=== PATIENT | male | born 1995 | race Caucasian/White ===

== ENCOUNTER 2016-11-25 02:12 | Inpatient (IN) | payer OTHER ==
[2016-11-25] VITALS (20 sets, daily range): BP systolic 104–153; BP diastolic 49–92
[~2016-11-25] VITALS: Ht 185.4 cm; Wt 108.9 kg
[2016-11-25] MEDS ORDERED: Naloxone 1mg/ml 2ml ONE ×3 (04:24→04:38)
--- NOTE | 2016-11-25 04:41 | Emergency Room Report ---
History of Present Illness General Chief Complaint: Overdose Source: Patient, EMS Present Illness HPI 21YOM BIBEMS with heroin OD. Per EMS, required 2mg IV and IM heroin as was not responsive, not breathing CPR was started Finally responded after 2nd dose narcan Patient states he did 1/2 gram. Relapsed after 1 year of not using Denies ETOH, other drugs Allergies: Coded Allergies: No Known Allergies (Unverified , 11/25/16) Patient History Past Medical History: none Past Surgical History: none Pertinent Family History: none Social History: Denies: alcohol use, drug use, smoking Immunizations: UTD Reviewed Nursing Documentation: PMH: Agreed, PSxH: Agreed Nursing Documentation-PMH Past Medical History: No Stated History Review of Systems All Other Systems: negative except mentioned in HPI Physical Exam Vital Signs Date Time Temp Pulse Resp B/P Pulse Ox O2 Delivery O2 Flow Rate FiO2 11/25/16 02:08 100.2 96 22 121/102 100 Room Air Sp02 EP Interpretation: reviewed, normal General Appearance: normal inspection, well appearing, no apparent distress, alert, GCS 15, non-toxic Head: normocephalic, atraumatic Eyes: bilateral eye EOMI, bilateral eye PERRL ENT: normal ENT inspection, hearing grossly normal, normal voice Neck: normal inspection, full range of motion, supple, no bony tend Respiratory: normal inspection, lungs clear, normal breath sounds, no respiratory distress, no retraction, no wheezing Cardiovascular #1: regular rate, rhythm, no edema Gastrointestinal: normal inspection, normal bowel sounds, non tender, soft, no guarding, no hernia Genitourinary: no CVA tenderness Musculoskeletal: normal inspection, back normal, normal range of motion, Alicja' s Sign negative Neurologic: normal inspection, alert, oriented x3, responsive, holder pile driving III-XII nml as tested, motor strength/tone normal, speech normal Psychiatric: normal inspection, judgement/insight normal, mood/affect normal Skin: normal inspection, normal color, no rash Medical Decision Making Diagnostic Impression: Primary Impression: Heroin overdose Qualified Codes: T40.1X1A - Poisoning by heroin, accidental (unintentional), initial encounter Additional Impressions: Respiratory arrest Rhabdomyolysis Qualified Codes: M62.82 - Rhabdomyolysis JOSE ALFREDO (acute kidney injury) Leukocytosis Qualified Codes: D72.829 - Elevated white blood cell count, unspecified Hypokalemia ER Course Initial heroin overdose responsive to narcan Patient was observed in the ED with stable vitals until 430am, patient became unresponsive Was pale, shallow RR, pinpoint pupils Additional narcan 1mg X2 was given followed by narcan gtt Labs: Rhabdo, JOSE ALFREDO. Leukocytosis likely reactionary vs chemical pneumonitis from vomiting/aspiration CXR: No PNA, CHF Endorsed for ICU to Dr Salinas at 530am EKG Diagnostic Results Rate: normal Rhythm: NSR ST Segments: no acute changes ASA given to the pt in ED: No Rhythm Strip Diag. Results EP Interpretation: yes Rate: 74 Rhythm: NSR, no PVC's, no ectopy Chest X-Ray Diagnostic Results Chest X-Ray Diagnostic Results : Chest X-Ray Ordered: Yes # of Views/Limited/Complete: 1 View Indication: Chest Pain EP Interpretation: Yes Interpretation: no consolidation, no effusion, no pneumothorax, no acute cardiopulmonary disease Impression: No acute disease Interpreting ER Provider: Electronically signed by DR Glass Last Vital Signs Date Time Temp Pulse Resp B/P Pulse Ox O2 Delivery O2 Flow Rate FiO2 11/25/16 03:22 100.2 86 22 132/78 100 Room Air Status: improved Disposition: ADMITTED INPATIENT Condition: Critical Referrals: NOT CHOSEN IPA/,REFERRING (PCP) NOREEN GLASS M.D. Nov 25, 2016 04:40
[2016-11-25] MEDS ORDERED: Naloxone 2 MG in D5W 500ml 498 ML IV SCH (04:45)
[2016-11-25] MEDS ORDERED: Naloxone 1mg/ml 2ml IVP ONE ×2 (04:45)
[2016-11-25 04:57] LABS: MEAN CORPUSCULAR HEMOGLOBIN 33.1 PG (27.0-31.0); MEAN CORPUSCULAR HGB CONC 34.1 G/DL (32.0-36.0); MEAN CORPUSCULAR VOLUME 97 FL (80-99); MEAN PLATELET VOLUME 6.9 FL (6.5-10.1); PLATELET COUNT 187 K/UL (150-450); RED BLOOD COUNT 4.47 M/UL (4.70-6.10); RED CELL DISTRIBUTION WIDTH 11.4 % (11.6-14.8)
[2016-11-25 05:14] LABS: TROPONIN I < 0.30 ng/mL (<=0.30)
[2016-11-25 05:15] LABS: ALANINE AMINOTRANSFERASE 29 U/L (3-41); ALBUMIN/GLOBULIN RATIO 2.1 (1.0-2.7); ANION GAP 14 (5-15); ASPARTATE AMINO TRANSFERASE 34 U/L (5-40); CALCIUM 9.5 mg/dL (8.6-10.2); CARBON DIOXIDE 26 mEQ/L (20-30); CHLORIDE 101 mEQ/L (98-107); CREATININE 1.3 mg/dL (0.7-1.2); GLOMERULAR FILTRATION RATE > 60 mL/min (>60); HEMOLYSIS 7; POTASSIUM 3.2 mEQ/L (3.4-4.9); SODIUM 141 mEQ/L (135-145); TOTAL PROTEIN 7.5 g/dL (6.6-8.7)
[2016-11-25 05:26] LABS: CKMB 9.3 ng/mL (< 6.7)
[2016-11-25 06:08] LABS: BAND NEUTROPHILS % (MANUAL) 14 % (0-8); LYMPHOCYTES % (MANUAL) 6 % (20-45); NEUTROPHILS % (MANUAL) 74 % (45-75); TOTAL CELLS COUNTED 100
[2016-11-25 06:09] LABS: BASOPHILS % (MANUAL) 0 % (0-2); EOSINOPHILS % (MANUAL) 0 % (0-3); PLATELET ESTIMATE ADEQUATE; PLATELET MORPHOLOGY NORMAL
[2016-11-25] MEDS ORDERED: DuoNeb 0.5-3(2.5)mg/3ml neb HHN PRN ×2 (08:00→20:00)
[2016-11-25] MEDS ORDERED: Nitroglycerin Subl 0.4mg tab (Bottle Of 25) SL PRN ×2 (08:00→19:30)
[2016-11-25] MEDS ORDERED: LORazepam Inj 2mg/ml 1ml IV PRN ×2 (08:00→20:00)
[2016-11-25] MEDS ORDERED: D5 1/2NS 1,000 ML IV SCH (09:00)
[2016-11-25] MEDS ORDERED: Heparin 5000 units/ml inj SUBQ SCH (09:00)
--- NOTE | 2016-11-25 09:02 | History and Physical ---
History of Present Illness General Date patient seen: Nov 25, 2016 Reason for Hospitalization: Overdose Present Illness HPI 21 year old male brought in by paramedics with heroin OD. Per EMS, required 2mg IV Narcan not breathing, CPR was started. He responded after 2nd dose Narcan. He was started on Narcan drip in ER and transferred to ICU. Allergies: Coded Allergies: No Known Allergies (Unverified , 11/25/16) Patient History Healthcare decision maker Resuscitation status Full Code Advanced Directive on File Past Medical/Surgical History Past Medical/Surgical History: (1) Heroin addiction Review of Systems All Other Systems: negative except mentioned in HPI Physical Exam General Appearance: WD/WN, no apparent distress Lines, tubes and drains: peripheral HEENT: normocephalic, atraumatic Neck: non-tender, normal alignment Respiratory/Chest: chest wall non-tender, lungs clear Breasts: no masses Cardiovascular/Chest: normal peripheral pulses Abdomen: normal bowel sounds, non tender Genitourinary/Rectal: normal genital exam, normal prostate exam Extremities: normal range of motion 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 Last 24 Hour Vital Signs Date Time Temp Pulse Resp B/P Pulse Ox O2 Delivery O2 Flow Rate FiO2 11/25/16 08:00 97.7 54 8 116/53 100 Non-Rebreather 15.0 11/25/16 08:00 69 11/25/16 07:35 55 9 122/60 100 Non-Rebreather 15.0 11/25/16 07:26 97.3 60 13 120/65 98 Non-Rebreather 15.0 11/25/16 07:20 97.3 60 13 120/65 98 Non-Rebreather 15.0 11/25/16 05:58 100.2 67 25 118/60 100 Non-Rebreather 15.0 11/25/16 05:30 100.2 53 10 153/65 96 Non-Rebreather 15.0 11/25/16 05:15 100.2 80 14 126/59 96 Non-Rebreather 15.0 11/25/16 05:08 100.2 80 14 119/59 96 Room Air 11/25/16 03:22 100.2 86 22 132/78 100 Room Air 11/25/16 02:26 96 22 Room Air 11/25/16 02:08 100.2 96 22 121/102 100 Room Air Intake and Output 11/24/16 11/25/16 19:00 07:00 Intake Total 0 ml Balance 0 ml Intake Oral 0 ml Laboratory Tests Test 11/25/16 04:35 White Blood Count 21.0 K/UL (4.8-10.8) H Red Blood Count 4.47 M/UL (4.70-6.10) L Hemoglobin 14.8 G/DL (14.2-18.0) Hematocrit 43.4 % (42.0-52.0) Mean Corpuscular Volume 97 FL (80-99) Mean Corpuscular Hemoglobin 33.1 PG (27.0-31.0) H Mean Corpuscular Hemoglobin Concent 34.1 G/DL (32.0-36.0) Red Cell Distribution Width 11.4 % (11.6-14.8) L Platelet Count 187 K/UL (150-450) Mean Platelet Volume 6.9 FL (6.5-10.1) Neutrophils (%) (Auto) % (45.0-75.0) Lymphocytes (%) (Auto) % (20.0-45.0) Monocytes (%) (Auto) % (1.0-10.0) Eosinophils (%) (Auto) % (0.0-3.0) Basophils (%) (Auto) % (0.0-2.0) Differential Total Cells Counted 100 Neutrophils % (Manual) 74 % (45-75) Lymphocytes % (Manual) 6 % (20-45) L Monocytes % (Manual) 6 % (1-10) Eosinophils % (Manual) 0 % (0-3) Basophils % (Manual) 0 % (0-2) Band Neutrophils 14 % (0-8) H Platelet Estimate Adequate Platelet Morphology Normal Red Blood Cell Morphology Normal Sodium Level 141 mEQ/L (135-145) Potassium Level 3.2 mEQ/L (3.4-4.9) L Chloride Level 101 mEQ/L (98-107) Carbon Dioxide Level 26 mEQ/L (20-30) Anion Gap 14 (5-15) Blood Urea Nitrogen 19 mg/dL (7-23) Creatinine 1.3 mg/dL (0.7-1.2) H Estimat Glomerular Filtration Rate > 60 mL/min (>60) Glucose Level 228 mg/dL (74-106) H Calcium Level 9.5 mg/dL (8.6-10.2) Total Bilirubin 0.5 mg/dL (0.0-1.2) Aspartate Amino Transf (AST/SGOT) 34 U/L (5-40) Alanine Aminotransferase (ALT/SGPT) 29 U/L (3-41) Alkaline Phosphatase 55 U/L (40-129) Total Creatine Kinase 645 U/L (38-174) H Creatine Kinase MB 9.3 ng/mL (< 6.7) H Creatine Kinase MB Relative Index 1.4 Troponin I < 0.30 ng/mL (<=0.30) Total Protein 7.5 g/dL (6.6-8.7) Albumin 5.1 g/dL (3.5-5.2) Globulin 2.4 g/dL Albumin/Globulin Ratio 2.1 (1.0-2.7) Height (Feet): 6 Height (Inches): 1.00 Weight (Pounds): 240 Medications Current Medications Medications (Trade) Dose Ordered Sig/Teresa Route PRN Reason Start Time Stop Time Status Last Admin Dose Admin Acetaminophen (Tylenol) 650 mg Q4H PRN ORAL Fever>100.5 11/25/16 08:00 12/25/16 07:59 Albuterol/ Ipratropium (DuoNeb 0.5-3(2.5)mg/3ml) 3 ml Q4H PRN HHN Shortness of Breath 11/25/16 08:00 11/30/16 07:59 Dextrose (Dextrose 50%) STAT PRN IV Hypoglycemia 11/25/16 08:00 12/25/16 07:59 Dextrose/Sodium Chloride (D5 0.45% NS) 1,000 ml @ 75 mls/hr [id number] IV 11/25/16 09:00 12/25/16 08:59 11/25/16 08:34 Heparin Sodium (Porcine) (Heparin 5000 units/ml) 5,000 units EVERY 12 HOURS SUBQ 11/25/16 09:00 12/25/16 08:59 11/25/16 08:44 Lorazepam (Ativan 2mg/ml 1ml) 2 mg Q2H PRN IV Agitation 11/25/16 08:00 12/02/16 07:59 Nitroglycerin (Ntg) 0.4 mg Q5M PRN SL Prn Chest Pain 11/25/16 08:00 12/25/16 07:59 Ondansetron HCl (Zofran) 4 mg Q6H PRN IVP Nausea & Vomiting 11/25/16 08:00 12/25/16 07:59 11/25/16 08:34 Assessment/Plan Problem List: (1) Respiratory arrest ICD Codes: R09.2 - Respiratory arrest SNOMED: 50020787 (2) Heroin overdose ICD Codes: T40.1X1A - Poisoning by heroin, accidental (unintentional), initial encounter SNOMED: 102982361, 42089165 Qualifiers: Qualified Codes: T40.1X1A - Poisoning by heroin, accidental (unintentional) , initial encounter (3) JOSE ALFREDO (acute kidney injury) ICD Codes: N17.9 - Acute kidney failure, unspecified SNOMED: 90949760, 295546765 (4) Rhabdomyolysis ICD Codes: M62.82 - Rhabdomyolysis SNOMED: 174188831, 083481727 Qualifiers: Qualified Codes: M62.82 - Rhabdomyolysis (5) Leukocytosis ICD Codes: D72.829 - Elevated white blood cell count, unspecified SNOMED: 796285786, 123605537 Qualifiers: Qualified Codes: D72.829 - Elevated white blood cell count, unspecified Respiratory: monitor respiratory rate, adjust FIO2, CXR Cardiac: continue to monitor HR/BP Renal: F/U I&O, keep IV fluid Infectious Disease: check cultures, continue antibiotics Gastrointestinal: start feedings Endocrine: monitor blood sugar Hematologic: monitor H/H Neurologic: PRN Ativan Prophylaxis: Protonix, Heparin Discussed with: nurses, consultants NENA AGUSTIN Nov 25, 2016 09:02
--- NOTE | 2016-11-25 11:22 | Diagnostic Imaging Report ---
Indication: SOB Technique: One view of the chest Comparison: none Findings: Lungs and pleural spaces are clear. Heart size is normal. Inspiration is suboptimal Impression: No acute process
--- NOTE | 2016-11-25 17:02 | Infectious Diseases Prog Note ---
Infectious Disease Consult Infectious Disease Consult Infectious Disease Consult INFECTIOUS DISEASE CONSULTATION DATE OF CONSULTATION: [id number] CONSULTING PHYSICIAN: Venkata Benitez M.D., [facility], [facility] Covering for Dr. Perez REFERRING PHYSICIAN: Dr. Salinas REASON FOR CONSULTATION: Leukocytosis HISTORY OF PRESENT ILLNESS: 21 y/o WM h/o heroin IVDU sober since September 2015, admitted with acute intoxication secondary to heroin inhalational use yesterday. Initial EMS evaluation noted patient to be unresponsive and apneic, so administered Narcan and CPR was started, and he responded after the second dose of narcan. Was started on narcan gtt in ER and transferred to ICU. At initial eval, had low grade temp of 100.2F shortly after resuscitation, and post resuscitation has leukocytosis to 21.0 this morning w/ 14% bands, elevated serum CK, and CXR negative for infiltrate. patient is sleepy in the ICU currently, and was desatting to 82% with RR 6, but easily woken up with prompt return of O2 sats >96%. he denies any h/o skin/ soft tissue infection, no known h/o MRSA, denies h/o IE, and reinforces that his last IVDU was >12 months ago. PAST MEDICAL HISTORY: Past Surgical History: ALLERGIES: No known drug allergies. ANTIBIOTICS: Home and hospitalized medications reviewed. SOCIAL HISTORY: h/o IVDU. FAMILY HISTORY: Noncontributory REVIEW OF SYSTEMS: 11 point ROS negative except for that mentioned in HPI above. PHYSICAL EXAM: VITAL SIGNS: T97.9F bp 109/66 hr 63 rr 12 98% on 3L NC GEN: somnolent but arousable, holding cell phone in his hand, non toxic appearing HEENT: Mild pale conjunctiva. oral mucosa dry, pharynx w/o exudate or effusion. No icterus. Head normocephalic, neck supple. no conjunctival injection, no conjunctival hemorrhage NECK: No cervical LAD CHEST: Clear to auscultation bilaterally. HEART: S1 and S2, no murmurs, no rubs. ABDOMEN: soft, non tender, non distended, normoactive bowel sounds. no hepatosplenomegaly EXTREMITIES: No cyanosis, no clubbing, no edema. no janeway lesions, no osler nodes, no splinter hemorrhages NEUROLOGIC: Awake, alert, no focal neurologic motor deficits. : unremarkable LYMPH: no LAD RECTAL: deferred LABORATORY AND DIAGNOSTIC DATA: WBC 21, hgb 14.8, plt 187, bands 14% bmp 141/3.2/101/26/19/1.3/228 Ca 9.5, t bili 0.5, ast 34, alt 29, alk phos 55, prot 7.5, alb 5.1 CPK 645 rapid HIV test negative RADIOLOGY: Procedure: XRAY Chest 1v Indication: SOB Technique: One view of the chest Comparison: none Findings: Lungs and pleural spaces are clear. Heart size is normal. Inspiration is suboptimal Impression: No acute process ASSESSMENT AND PLAN Acute inhalational opioid intoxication c/b cardiac arrest requiring CPR with post resuscitation leukocytosis and elevated CPK. ASSESSMENT: Most likely stress response. low grade temp has resolved. remote h/o IVDU puts him at risk of staph bacteremia and IE, but his exam is negative for peripheral stigmata of IE, has no osteoarticular abnormalities, and skin exam negative for skin/soft tissue infection. currently afebrile, hemodynamically stable, CXR negative for aspiration. 1) Leukocytosis 2) risk factor for bacteremia or IE, but exam reassuring 3) Elevated CPK and mild JOSE ALFREDO c/w s/p CPR 4) Inhalational Opioid intoxication 5) Pulmonary arrest 6) ? urinary retention PLAN: --HIV screening; negative --viral hepatitis screening --blood cx x2 --ESR, CRP, and repeat CPK in AM --if develops fevers or + blood cx, start empiric IV vanc --bladder scan --monitor off abx --monitor CBC Thank you for this consultation. Will continue to follow. Covering for Dr. Perez, please call me with questions, Venkata Benitez M.D. Nov 25, 2016 17:02
[2016-11-25] MEDS: D5 1/2NS 1,000 ML IV SCH (20:07)
[2016-11-25] MEDS: Heparin 5000 units/ml inj SUBQ SCH (21:30)
[2016-11-25 23:06] LABS: APPEARANCE,URINE CLEAR; KETONES,URINE 1+ (NEGATIVE); LEUKOCYTE ESTERASE ,URINE 1+ (NEGATIVE); NITRITE,URINE NEGATIVE (NEGATIVE); PH,URINE 6 (4.5-8.0); PROTEIN,URINE 2+ (NEGATIVE); UROBILINOGEN,URINE NORMAL MG/DL (0.0-1.0)
[2016-11-25 23:16] LABS: BACTERIA,URINE FEW /HPF; RBC,URINE 0-2 /HPF (0 - 0)
[2016-11-26 04:02] VITALS: BP 130/84
[2016-11-26] MEDS: D5 1/2NS 1,000 ML IV SCH ×3 (06:01→23:44)
--- NOTE | 2016-11-26 06:13 | Infectious Diseases Prog Note ---
Assessment/Plan Assessment/Plan Acute inhalational opioid intoxication c/b cardiac arrest requiring CPR with post resuscitation leukocytosis and elevated CPK. ASSESSMENT: Most likely stress response. low grade temp has resolved. remote h/o IVDU puts him at risk of staph bacteremia and IE, but his exam is negative for peripheral stigmata of IE, has no osteoarticular abnormalities, and skin exam negative for skin/soft tissue infection. currently afebrile, hemodynamically stable, CXR negative for aspiration. 1) Leukocytosis 2) risk factor for bacteremia or IE, but exam reassuring 3) Elevated CPK and mild JOSE ALFREDO c/w s/p CPR 4) Inhalational Opioid intoxication 5) Pulmonary arrest 6) ? urinary retention 7) u/a bland PLAN: --HIV screening; negative --viral hepatitis screening --blood cx x2 --ESR, CRP, and repeat CPK in AM --if develops fevers or + blood cx, start empiric IV vanc --monitor off abx --monitor CBC Subjective Constitutional: Reports: no symptoms Allergies: Coded Allergies: No Known Allergies (Unverified , 11/25/16) Objective Vital Signs Last 24 Hour Vital Signs Date Time Temp Pulse Resp B/P Pulse Ox O2 Delivery O2 Flow Rate FiO2 11/26/16 04:02 98.1 88 16 130/84 95 Room Air 11/26/16 04:00 54 11/26/16 00:00 64 11/25/16 23:57 98.5 85 15 132/92 94 Room Air 11/25/16 20:00 75 11/25/16 20:00 98.1 68 12 114/73 97 Room Air 3.0 11/25/16 18:00 83 12 108/49 97 Room Air 11/25/16 17:00 63 9 110/56 97 Nasal Cannula 3.0 11/25/16 16:00 48 11/25/16 16:00 97.9 63 12 109/66 96 Nasal Cannula 3.0 11/25/16 15:00 69 16 104/55 91 Nasal Cannula 3.0 11/25/16 14:00 58 11 111/55 97 Nasal Cannula 3.0 11/25/16 13:00 54 17 111/56 98 Nasal Cannula 3.0 11/25/16 12:00 77 11/25/16 12:00 97.9 72 15 118/72 97 Nasal Cannula 3.0 11/25/16 11:00 76 22 129/64 99 Nasal Cannula 3.0 11/25/16 10:00 47 13 114/54 100 Nasal Cannula 3.0 11/25/16 09:00 52 11 113/54 96 Nasal Cannula 3.0 11/25/16 08:00 97.7 54 8 116/53 100 Non-Rebreather 15.0 11/25/16 08:00 69 11/25/16 07:35 55 9 122/60 100 Non-Rebreather 15.0 11/25/16 07:26 97.3 60 13 120/65 98 Non-Rebreather 15.0 11/25/16 07:20 97.3 60 13 120/65 98 Non-Rebreather 15.0 Height (Feet): 6 Height (Inches): 1.00 Weight (Pounds): 240 Objective GEN: somnolent but arousable, non toxic appearing HEENT: Mild pale conjunctiva. oral mucosa dry, pharynx w/o exudate or effusion. No icterus. Head normocephalic, neck supple. no conjunctival injection, no conjunctival hemorrhage NECK: No cervical LAD CHEST: Clear to auscultation bilaterally. HEART: S1 and S2, no murmurs, no rubs. ABDOMEN: soft, non tender, non distended, normoactive bowel sounds. no hepatosplenomegaly EXTREMITIES: No cyanosis, no clubbing, no edema. no janeway lesions, no osler nodes, no splinter hemorrhages. no pain to palpation of extremities NEUROLOGIC: Awake, alert, no focal neurologic motor deficits. : unremarkable LYMPH: no LAD RECTAL: deferred MSK: no back pain to palpation, no pain over spinal processes, no CVA tenderness Laboratory Tests Test 11/25/16 21:30 Urine Color Yellow Urine Appearance Clear Urine pH 6 (4.5-8.0) Urine Specific [place] 1.020 (1.005-1.035) Urine Protein 2+ (NEGATIVE) H Urine Glucose (UA) 3+ (NEGATIVE) H Urine Ketones 1+ (NEGATIVE) H Urine Occult Blood Negative (NEGATIVE) Urine Nitrite Negative (NEGATIVE) Urine Bilirubin Negative (NEGATIVE) Urine Urobilinogen Normal MG/DL (0.0-1.0) Urine Leukocyte Esterase 1+ (NEGATIVE) H Urine RBC 0-2 /HPF (0 - 0) H Urine WBC 2-4 /HPF (0 - 0) Urine Squamous Epithelial Cells None /LPF (NONE/OCC) Urine Bacteria Few /HPF (NONE) Urine Opiates Screen Positive (NEGATIVE) H Urine Barbiturates Screen Negative (NEGATIVE) Phencyclidine (PCP) Screen Negative (NEGATIVE) Urine Amphetamines Screen Negative (NEGATIVE) Urine Benzodiazepines Screen Negative (NEGATIVE) Urine Cocaine Screen Negative (NEGATIVE) Urine Marijuana (THC) Screen Positive (NEGATIVE) H Current Medications Medications (Trade) Dose Ordered Sig/Teresa Route PRN Reason Start Time Stop Time Status Last Admin Dose Admin Acetaminophen (Tylenol) 650 mg Q4H PRN ORAL Fever>100.5 11/25/16 20:00 12/25/16 19:59 Albuterol/ Ipratropium (DuoNeb 0.5-3(2.5)mg/3ml) 3 ml Q4H PRN HHN Shortness of Breath 11/25/16 20:00 11/30/16 19:59 Dextrose (Dextrose 50%) STAT PRN IV Hypoglycemia 11/25/16 20:00 12/25/16 19:59 Dextrose/Sodium Chloride (D5 0.45% NS) 1,000 ml @ 75 mls/hr [id number] IV 11/25/16 20:00 12/25/16 19:59 11/26/16 06:01 Heparin Sodium (Porcine) (Heparin 5000 units/ml) 5,000 units EVERY 12 HOURS SUBQ 11/25/16 21:00 12/25/16 20:59 Lorazepam (Ativan 2mg/ml 1ml) 2 mg Q2H PRN IV Agitation 11/25/16 20:00 12/02/16 19:59 Nitroglycerin (Ntg) 0.4 mg Q5MIN PRN SL Prn Chest Pain 11/25/16 19:30 12/25/16 19:29 Ondansetron HCl (Zofran) 4 mg Q6H PRN IVP Nausea & Vomiting 11/25/16 20:00 12/25/16 19:59 Venkata Benitez M.D. Nov 26, 2016 06:13
[2016-11-26 08:00] VITALS: BP 123/62
[2016-11-26] MEDS: Heparin 5000 units/ml inj SUBQ SCH ×2 (09:03→21:40)
[2016-11-26 09:11] LABS: BASOPHILS % (AUTO) 0.7 % (0.0-2.0); EOSINOPHILS % (AUTO) 5.7 % (0.0-3.0); LYMPHOCYTES % (AUTO) 32.5 % (20.0-45.0); MEAN CORPUSCULAR HEMOGLOBIN 32.3 PG (27.0-31.0); MEAN CORPUSCULAR HGB CONC 33.6 G/DL (32.0-36.0); MEAN CORPUSCULAR VOLUME 96 FL (80-99); MONOCYTES % (AUTO) 13.5 % (1.0-10.0); NEUTROPHILS % (AUTO) 47.6 % (45.0-75.0); PLATELET COUNT 141 K/UL (150-450); RED BLOOD COUNT 4.53 M/UL (4.70-6.10); RED CELL DISTRIBUTION WIDTH 11.3 % (11.6-14.8); WHITE BLOOD COUNT 7.7 K/UL (4.8-10.8)
[2016-11-26 09:15] LABS: INR 1.1 (0.9-1.1)
[2016-11-26 09:21] LABS: BILIRUBIN,DIRECT 0.1 mg/dL (0.1-0.3); TOTAL PROTEIN 6.2 g/dL (6.6-8.7)
[2016-11-26 09:27] LABS: CRP QUANT 0.4 mg/dL (< 0.5)
[2016-11-26 12:00] VITALS: BP 128/69
--- NOTE | 2016-11-26 12:43 | Pulmonology Progress Note ---
Assessment/Plan Problems: (1) Respiratory arrest (2) Heroin overdose (3) JOSE ALFREDO (acute kidney injury) (4) Rhabdomyolysis (5) Leukocytosis Assessment/Plan feeling better Heart rate as low as 30's cardio evaluation might go home if OK with cardio Subjective ROS Limited/Unobtainable: No Interval Events: no new complains Allergies: Coded Allergies: No Known Allergies (Unverified , 11/25/16) Objective Last 24 Hour Vital Signs Date Time Temp Pulse Resp B/P Pulse Ox O2 Delivery O2 Flow Rate FiO2 11/26/16 08:00 98.1 75 17 123/62 96 Room Air 11/26/16 07:58 51 16 Room Air 21 11/26/16 04:02 98.1 88 16 130/84 95 Room Air 11/26/16 04:00 54 11/26/16 00:00 64 11/25/16 23:57 98.5 85 15 132/92 94 Room Air 11/25/16 20:00 75 11/25/16 20:00 98.1 68 12 114/73 97 Room Air 3.0 11/25/16 18:00 83 12 108/49 97 Room Air 11/25/16 17:00 63 9 110/56 97 Nasal Cannula 3.0 11/25/16 16:00 48 11/25/16 16:00 97.9 63 12 109/66 96 Nasal Cannula 3.0 11/25/16 15:00 69 16 104/55 91 Nasal Cannula 3.0 11/25/16 14:00 58 11 111/55 97 Nasal Cannula 3.0 11/25/16 13:00 54 17 111/56 98 Nasal Cannula 3.0 Intake and Output 11/25/16 11/26/16 19:00 07:00 Intake Total 1690 ml 900 ml Output Total 50 ml Balance 1640 ml 900 ml Intake Oral 940 ml IV Total 750 ml 900 ml Output Urine Total 0 ml Emesis 50 ml # Voids 2 General Appearance: WD/WN HEENT: normocephalic, atraumatic Respiratory/Chest: chest wall non-tender, lungs clear Cardiovascular: normal peripheral pulses, normal rate Abdomen: normal bowel sounds, soft, non tender Genitourinary: normal external genitalia Extremities: no cyanosis Skin: no rash Laboratory Tests 11/25/16 21:30: Urine Color Yellow, Urine Appearance Clear, Urine pH 6, Urine Specific [place] 1.020, Urine Protein 2+H, Urine Glucose (UA) 3+H, Urine Ketones 1+H, Urine Occult Blood Negative, Urine Nitrite Negative, Urine Bilirubin Negative, Urine Urobilinogen Normal, Urine Leukocyte Esterase 1+H, Urine RBC 0-2H, Urine WBC 2-4 , Urine Squamous Epithelial Cells None, Urine Bacteria Few, Urine Opiates Screen PositiveH, Urine Barbiturates Screen Negative, Phencyclidine (PCP) Screen Negative, Urine Amphetamines Screen Negative, Urine Benzodiazepines Screen Negative, Urine Cocaine Screen Negative, Urine Marijuana (THC) Screen PositiveH 11/26/16 08:00: White Blood Count 7.7#, Red Blood Count 4.53L, Hemoglobin 14.6, Hematocrit 43.5 , Mean Corpuscular Volume 96, Mean Corpuscular Hemoglobin 32.3H, Mean Corpuscular Hemoglobin Concent 33.6, Red Cell Distribution Width 11.3L, Platelet Count 141L, Mean Platelet Volume 8.0, Neutrophils (%) (Auto) 47.6, Lymphocytes (%) (Auto) 32.5, Monocytes (%) (Auto) 13.5H, Eosinophils (%) (Auto) 5.7H, Basophils (%) (Auto) 0.7, Erythrocyte Sedimentation Rate 4, Prothrombin Time 11.0, Prothromb Time International Ratio 1.1, Activated Partial Thromboplast Time 29, Phosphorus Level 4.0, Total Bilirubin 0.4, Direct Bilirubin 0.1, Aspartate Amino Transf (AST/SGOT) 23, Alanine Aminotransferase ( ALT/SGPT) 25, Alkaline Phosphatase 44, Lactate Dehydrogenase 204, Total Creatine Kinase 301H, C-Reactive Protein, Quantitative 0.4, Total Protein 6.2L, Albumin 4.3, Hepatitis A IgM Antibody [Pending], Hepatitis B Surface Antigen [ Pending], Hepatitis B Core IgM Antibody [Pending], Hepatitis C Antibody [Pending ] Current Medications Medications (Trade) Dose Ordered Sig/Teresa Route PRN Reason Start Time Stop Time Status Last Admin Dose Admin Acetaminophen (Tylenol) 650 mg Q4H PRN ORAL Fever>100.5 11/25/16 20:00 12/25/16 19:59 Albuterol/ Ipratropium (DuoNeb 0.5-3(2.5)mg/3ml) 3 ml Q4H PRN HHN Shortness of Breath 11/25/16 20:00 11/30/16 19:59 Dextrose (Dextrose 50%) STAT PRN IV Hypoglycemia 11/25/16 20:00 12/25/16 19:59 Dextrose/Sodium Chloride (D5 0.45% NS) 1,000 ml @ 75 mls/hr [id number] IV 11/25/16 20:00 12/25/16 19:59 11/26/16 06:01 Heparin Sodium (Porcine) (Heparin 5000 units/ml) 5,000 units EVERY 12 HOURS SUBQ 11/25/16 21:00 12/25/16 20:59 11/26/16 09:03 Lorazepam (Ativan 2mg/ml 1ml) 2 mg Q2H PRN IV Agitation 11/25/16 20:00 12/02/16 19:59 Nitroglycerin (Ntg) 0.4 mg Q5MIN PRN SL Prn Chest Pain 11/25/16 19:30 12/25/16 19:29 Ondansetron HCl (Zofran) 4 mg Q6H PRN IVP Nausea & Vomiting 11/25/16 20:00 12/25/16 19:59 NENA AGUSTIN Nov 26, 2016 12:43
--- NOTE | 2016-11-26 15:10 | Cardiology Report ---
APPROVED REPORT EXAM: Two-dimensional and M-mode echocardiogram with Doppler and color Doppler. INDICATION Left Ventricular Function M-Mode DIMENSIONS IVSd0.9 (0.7-1.1cm)Left Atrium (MM)3.9 (1.6-4.0cm) LVDd6.0 (3.5-5.6cm)Aortic Root3.7 (2.0-3.7cm) PWd1.0 (0.7-1.1cm)Aortic Cusp Exc.2.2 (1.5-2.0cm) LVDs3.1 (2.5-4.0cm) PWs1.5 cm Mild left ventricular enlargement. Normal left ventricular systolic function and wall motion. Left ventricular ejection fraction estimated to be 55 %. No evidence of ventricular hypertrophy. No evidence of pericardial fat or effusion. All other cardiac chamber sizes are within normal limits. Normal appearing aortic, mitral, puImonic and tricuspid valves. IVC dilated at 3.1 cm with physiologic collapse. A color flow and spectral Doppler study was performed and revealed: No aortic regurgitation. No mitral regurgitation. Mitral inflow velocities indicates normal left ventricular diastolic function. Mild tricuspid regurgitation. Tricuspid systolic velocities suggests peak right ventricular systolic pressure of 17 mmHg. Trace pulmonic regurgitation present.
[2016-11-26 16:00] VITALS: BP 128/58
--- NOTE | 2016-11-26 19:14 | Cardiology Progress Note ---
Assessment/Plan Assessment/Plan [id number] Objective Last 24 Hour Vital Signs Date Time Temp Pulse Resp B/P Pulse Ox O2 Delivery O2 Flow Rate FiO2 11/26/16 16:00 46 11/26/16 16:00 98.2 55 18 128/58 98 Room Air 11/26/16 12:00 47 11/26/16 12:00 97.9 58 16 128/69 100 Room Air 11/26/16 08:00 98.1 75 17 123/62 96 Room Air 11/26/16 08:00 55 11/26/16 07:58 51 16 Room Air 21 11/26/16 04:02 98.1 88 16 130/84 95 Room Air 11/26/16 04:00 54 11/26/16 00:00 64 11/25/16 23:57 98.5 85 15 132/92 94 Room Air 11/25/16 20:00 75 11/25/16 20:00 98.1 68 12 114/73 97 Room Air 3.0 Intake and Output 11/25/16 11/26/16 19:00 07:00 Intake Total 1690 ml 975 ml Output Total 50 ml Balance 1640 ml 975 ml Intake Oral 940 ml IV Total 750 ml 975 ml Output Urine Total 0 ml Emesis 50 ml # Voids 2 Laboratory Tests Test 11/25/16 21:30 11/26/16 08:00 Urine Color Yellow Urine Appearance Clear Urine pH 6 (4.5-8.0) Urine Specific [place] 1.020 (1.005-1.035) Urine Protein 2+ (NEGATIVE) H Urine Glucose (UA) 3+ (NEGATIVE) H Urine Ketones 1+ (NEGATIVE) H Urine Occult Blood Negative (NEGATIVE) Urine Nitrite Negative (NEGATIVE) Urine Bilirubin Negative (NEGATIVE) Urine Urobilinogen Normal MG/DL (0.0-1.0) Urine Leukocyte Esterase 1+ (NEGATIVE) H Urine RBC 0-2 /HPF (0 - 0) H Urine WBC 2-4 /HPF (0 - 0) Urine Squamous Epithelial Cells None /LPF (NONE/OCC) Urine Bacteria Few /HPF (NONE) Urine Opiates Screen Positive (NEGATIVE) H Urine Barbiturates Screen Negative (NEGATIVE) Phencyclidine (PCP) Screen Negative (NEGATIVE) Urine Amphetamines Screen Negative (NEGATIVE) Urine Benzodiazepines Screen Negative (NEGATIVE) Urine Cocaine Screen Negative (NEGATIVE) Urine Marijuana (THC) Screen Positive (NEGATIVE) H White Blood Count 7.7 K/UL (4.8-10.8) # Red Blood Count 4.53 M/UL (4.70-6.10) L Hemoglobin 14.6 G/DL (14.2-18.0) Hematocrit 43.5 % (42.0-52.0) Mean Corpuscular Volume 96 FL (80-99) Mean Corpuscular Hemoglobin 32.3 PG (27.0-31.0) H Mean Corpuscular Hemoglobin Concent 33.6 G/DL (32.0-36.0) Red Cell Distribution Width 11.3 % (11.6-14.8) L Platelet Count 141 K/UL (150-450) L Mean Platelet Volume 8.0 FL (6.5-10.1) Neutrophils (%) (Auto) 47.6 % (45.0-75.0) Lymphocytes (%) (Auto) 32.5 % (20.0-45.0) Monocytes (%) (Auto) 13.5 % (1.0-10.0) H Eosinophils (%) (Auto) 5.7 % (0.0-3.0) H Basophils (%) (Auto) 0.7 % (0.0-2.0) Erythrocyte Sedimentation Rate 4 MM/HR (0-15) Prothrombin Time 11.0 SEC (9.30-11.50) Prothromb Time International Ratio 1.1 (0.9-1.1) Activated Partial Thromboplast Time 29 SEC (23-33) Phosphorus Level 4.0 mg/dL (2.5-4.8) Total Bilirubin 0.4 mg/dL (0.0-1.2) Direct Bilirubin 0.1 mg/dL (0.1-0.3) Aspartate Amino Transf (AST/SGOT) 23 U/L (5-40) Alanine Aminotransferase (ALT/SGPT) 25 U/L (3-41) Alkaline Phosphatase 44 U/L (40-129) Lactate Dehydrogenase 204 U/L (135-230) Total Creatine Kinase 301 U/L (38-174) H C-Reactive Protein, Quantitative 0.4 mg/dL (< 0.5) Total Protein 6.2 g/dL (6.6-8.7) L Albumin 4.3 g/dL (3.5-5.2) Hepatitis A IgM Antibody Pending Hepatitis B Surface Antigen Pending Hepatitis B Core IgM Antibody Pending Hepatitis C Antibody Pending WANDY DENISE Nov 26, 2016 19:14
[2016-11-26 20:00] VITALS: BP 139/63
[2016-11-26] MEDS ORDERED: D5 1/2NS 1000ml IV ONE (21:45)
[2016-11-27] VITALS: BP 122/79
--- NOTE | 2016-11-27 02:30 | Consultation ---
DATE OF CONSULTATION: 11/26/2016 CARDIOLOGY CONSULTATION REFERRING PHYSICIAN: Enrique Salinas M.D. REASON FOR REFERRAL: Bradycardia. HISTORY OF PRESENT ILLNESS: This is a very unfortunate gentleman, 21-year-old male that was found by the paramedics in the parking lot down with overdose. The patient's friend was doing CPR on the patient. The patient apparently had a pulse but was apneic. The patient's friend states he snorted approximately half a gram of cocaine, paramedics began and the patient began to breathe on his own and became more alert. He has been given additional 2 mg of IV Narcan and 4 mg of Zofran. After that, the patient became alert and no other complaints. The patient was transferred to the emergency room at [facility]. He was admitted to the hospital yesterday and was noted to be bradycardic. Therefore, this consultation is requested. The patient does not have any chest pain or pressure. No PND. No orthopnea. No palpitations. No dizziness or lightheadedness. He uses two pillows for basically comfort. PAST MEDICAL HISTORY: Fairly unremarkable except for the fact that he had asthma as a child. He has been actually sober from drugs for some time until his breakthrough the other night. SOCIAL HISTORY: Otherwise, he does smoke and does occasionally drink alcoholic beverages, no other drug use. This is the first time he has had an overdose. He has never had overdosed on any medications before. He used heroin for some time previously although he was sober. REVIEW OF SYSTEMS: Gastrointestinal: Negative except for the fact that he had some nausea and vomiting immediately after he woke up. Genitourinary: Otherwise negative. Pulmonary: He does have a cough that is occasionally productive of green sputum. Constitutional: Negative. Neurologic: Negative. Musculoskeletal: Negative. PHYSICAL EXAMINATION: GENERAL: The patient is a young male, large. NECK: Supple. No jugular venous distention. LUNGS: Clear to auscultation and percussion. CARDIAC: Regular but bradycardiac rhythm. ABDOMEN: Soft and nontender. Positive bowel sounds. EXTREMITIES: There is no clubbing, cyanosis, or edema. LABORATORY AND DIAGNOSTIC DATA: Telemetry shows sinus rhythm, sinus bradycardia, not terribly severe at all. Echocardiogram preliminary reports shows ejection fraction 55%,dilated IVC was commented on, although systolic blood pressure appears to be normal. His electrocardiogram on 11/25/2016 showed sinus rhythm at rate of 89, no significant ST-T wave abnormalities. His chest x-ray showed no acute processes. His laboratories, white count was 21 at the time of admission, 77.7 today with hemoglobin 14.7, and platelet count of 141,000 today. Sodium was 141 yesterday, potassium 3.2, chloride 105, bicarbonate 26, BUN of 19, creatinine 1.3, and glucose of 228. CK of 645. Troponin less than 0.03. CK subsequently was down to 301, otherwise liver function tests normal. INR 1 and PTT 22. Toxicology screen positive for opiates and marijuana. Urinalysis 0-2 RBCs and 2-4 WBCs. Human immunodeficiency virus I and II antibodies were normal. ASSESSMENT: 1. Heroin overdose. 2. 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 3. Sinus bradycardia. PLAN: Dr. Salinas, this patient was seen in cardiac consultation. The patient has asymptomatic sinus bradycardia. The thyroid-stimulating hormone will be ordered as a major issue. He is completely asymptomatic and no significant abnormalities. An EKG will be ordered for tomorrow morning. He is already ambulating to the bathroom. He should be allowed to ambulate in the halls and I suspect that once he becomes ambulatory that his heart rate should go backup. No significant abnormalities on the echocardiogram or chest x-ray have been identified. I will follow the patient along with you as needed. Further recommendations as become necessary. Shen Nuñez M.D. DR: JOY JOB#: [id number] CC:
[2016-11-27 04:00] VITALS: BP 106/65
[2016-11-27 07:45] VITALS: BP 122/64
[2016-11-27] MEDS: Heparin 5000 units/ml inj SUBQ SCH (08:25)
[2016-11-27 12:00] VITALS: BP 135/61
--- NOTE | 2016-11-27 12:59 | Pulmonology Progress Note ---
Assessment/Plan Problems: (1) Respiratory arrest (2) Heroin overdose (3) JOSE ALFREDO (acute kidney injury) (4) Rhabdomyolysis (5) Leukocytosis Assessment/Plan feeling better no new events cardio evaluation appreciated dc home Subjective ROS Limited/Unobtainable: No Constitutional: Reports: no symptoms HEENT: Repors: no symptoms Respiratory: Reports: no symptoms Allergies: Coded Allergies: No Known Allergies (Unverified , 11/25/16) Objective Last 24 Hour Vital Signs Date Time Temp Pulse Resp B/P Pulse Ox O2 Delivery O2 Flow Rate FiO2 11/27/16 12:00 96.6 58 20 135/61 98 Room Air 11/27/16 12:00 56 11/27/16 08:32 67 18 Room Air 21 11/27/16 08:00 40 11/27/16 07:45 97.0 56 20 122/64 98 Room Air 11/27/16 04:00 97.0 55 20 106/65 98 Room Air 3.0 21 11/27/16 04:00 42 11/27/16 00:00 98.1 56 20 122/79 98 Room Air 11/27/16 00:00 43 11/26/16 20:18 58 18 Room Air 21 11/26/16 20:00 97.7 51 20 139/63 98 Room Air 3.0 21 11/26/16 20:00 45 11/26/16 16:00 46 11/26/16 16:00 98.2 55 18 128/58 98 Room Air Intake and Output 11/26/16 11/27/16 19:00 07:00 Intake Total 750 ml 525 ml Balance 750 ml 525 ml IV Total 750 ml 525 ml # Voids 4 General Appearance: WD/WN HEENT: normocephalic, atraumatic Respiratory/Chest: chest wall non-tender, lungs clear Cardiovascular: normal peripheral pulses, normal rate Abdomen: normal bowel sounds, soft, non tender Genitourinary: normal external genitalia Extremities: no cyanosis Skin: no rash Neurologic/Psychiatric: cat skinner II-XII grossly normal Lymphatic: no neck adenopathy, no groin adenopathy Microbiology Date/Time Source Procedure Growth Status 11/25/16 13:45 Blood Blood Culture - Preliminary NO GROWTH AFTER 24 HOURS Resulted 11/25/16 13:30 Blood Blood Culture - Preliminary NO GROWTH AFTER 24 HOURS Resulted 11/25/16 06:00 Nasal Nares MRSA Culture - Final NO METHICILLIN RESISTANT STAPH AUREUS... Complete 11/25/16 21:30 Urine,Clean Catch Urine Culture - Preliminary NO GROWTH AFTER 24 HOURS Resulted 11/25/16 06:00 Rectum VRE Culture - Final NO VANCOMYCIN RESISTANT ENTEROCOCCUS ... Complete Laboratory Tests 11/27/16 08:15: Thyroid Stimulating Hormone (TSH) 1.190 Current Medications Medications (Trade) Dose Ordered Sig/Teresa Route PRN Reason Start Time Stop Time Status Last Admin Dose Admin Acetaminophen (Tylenol) 650 mg Q4H PRN ORAL Fever>100.5 11/25/16 20:00 12/25/16 19:59 Albuterol/ Ipratropium (DuoNeb 0.5-3(2.5)mg/3ml) 3 ml Q4H PRN HHN Shortness of Breath 11/25/16 20:00 11/30/16 19:59 Dextrose (Dextrose 50%) STAT PRN IV Hypoglycemia 11/25/16 20:00 12/25/16 19:59 Dextrose/Sodium Chloride (D5 0.45% NS) 1,000 ml @ 75 mls/hr [id number] IV 11/25/16 20:00 12/25/16 19:59 11/26/16 23:44 Heparin Sodium (Porcine) (Heparin 5000 units/ml) 5,000 units EVERY 12 HOURS SUBQ 11/25/16 21:00 12/25/16 20:59 11/27/16 08:25 Lorazepam (Ativan 2mg/ml 1ml) 2 mg Q2H PRN IV Agitation 11/25/16 20:00 12/02/16 19:59 Nitroglycerin (Ntg) 0.4 mg Q5MIN PRN SL Prn Chest Pain 11/25/16 19:30 12/25/16 19:29 Ondansetron HCl (Zofran) 4 mg Q6H PRN IVP Nausea & Vomiting 11/25/16 20:00 12/25/16 19:59 NENA AGUSTIN Nov 27, 2016 12:59
[2016-11-27] MEDS ORDERED: D5 1/2NS 1000ml IV ONE ×2 (13:07)
--- NOTE | 2016-11-28 05:46 | Discharge Summary ---
Discharge Summary Hospital Course Date of Admission Nov 25, 2016 at 05:03 Date of Discharge Nov 27, 2016 at 13:08 Admitting Diagnosis HEROIN OVERDOSE HPI Oniel Jorge is a 21 year old male who was admitted on Nov 25, 2016 at 05:03 for Heroin Overdose Hospital Course [id number] Discharge Discharge Disposition Patient was discharged to Home (01) Discharge Diagnoses: Cherri Barnett NP Nov 28, 2016 05:46
--- NOTE | 2016-11-28 07:45 | Discharge Summary 2 SIG ---
DATE OF ADMISSION: 11/25/2016 DATE OF DISCHARGE: 11/27/2016 CONSULTANTS: 1. Shen Nuñez M.D. 2. Rodrigo Benitez M.D. BRIEF HOSPITAL COURSE: The patient is a 21-year-old male, who was brought in by paramedics due to heroin overdose. Per EMS, the patient was not breathing and CPR was started. He responded after the second dose of Narcan. The patient on evaluation at ED, became again unresponsive with pinpoint pupils and shallow respiration. Additional Narcan was given, which was followed by Narcan drip. Laboratories showed leukocytosis. Creatinine was elevated to 1.3 and CK was 645. Chest x-ray done showed no acute process. EKG was in normal sinus rhythm. He was admitted to ICU on Narcan drip. Leukocytosis, WBC was elevated to 21. Leukocytosis was assessed to be likely secondary to stress response. Low-grade temperature resolved. He was monitored off antibiotic treatment. Human immunodeficiency virus screening was negative. Hepatitis screen negative. On telemetry, the patient was in sinus rhythm and sinus bradycardia. Echocardiogram showed ejection fraction of 55% with dilated IVC. EKG showed normal sinus rhythm with no significant ST to T-wave changes. He eventually became more alert. He was downgraded to telemetry. Blood cultures did not isolate any growth. Urine culture showed no growth. He was counseled against the use of street drugs and patient was eventually discharged home. FINAL DIAGNOSES: 1. Respiratory arrest. 2. Heroin overdose. 3. Acute kidney injury. 4. Rhabdomyolysis. 5. Leukocytosis, probably reactive. DISPOSITION: The patient was discharged home. FOLLOWUP: The patient was advised to follow up with PMD in a week. Enrique Salinas M.D. I have been assigned to dictate discharge summary on this account and I was not involved in the patient's management. Cherri Barnett N.P. DR: CHARLIE/PM JOB#: [id number] CC: ADILENE
== END 2016-11-27 13:08 | disposition home or self-care (01) | DRG 917 ==
LOC: ENRESERVTM → ENRESERVDT → ENRESERV → EDBD 02:12 → EMR 02:28 → ICU 05:03 → EDBEDREQ 06:17 → 2E 18:15
DX: T40.1X1A Poisoning by heroin, accidental (unintentional), initial encounter (principal); R09.2 Respiratory arrest; N17.9 Acute kidney failure, unspecified; M62.82 Rhabdomyolysis; D72.829 Elevated white blood cell count, unspecified; R00.1 Bradycardia, unspecified; Y92.481 Parking lot as the place of occurrence of the external cause; Z72.0 Tobacco use
CPT/HCPCS: 36415; 71010; 80053; 80076; 80300; 81003; 82550; 82553; 82962; 83615; 84100; 84443; 84484; 85007; 85025; 85610; 85651; 85730; 86140; 86703; 86705; 86709; 86803; 87040; 87081; 87086; 87340; 93005; 93306; 94664; J2310; J2405; J8499